=== PATIENT | male | born 1960 | race Caucasian/White ===

== ENCOUNTER 2017-06-10 19:01 | Emergency (ER) | payer OTHER ==
[2017-06-10] MEDS ORDERED: NS 1,000 ML IV ONE ×2 (19:29→19:58)
[2017-06-10] MEDS ORDERED: ONDANSETRON 4 MG/2 ML VIAL IVP ONE (19:29)
[2017-06-10] MEDS ORDERED: KETOROLAC 30 MG/1 ML SDV IVP ONE (19:29)
--- NOTE | 2017-06-10 19:40 | EDPHY ---
H & P Stated Complaint: R Flank pain. 5 x ER admits for Kidney Stones. Time Seen by Provider: 06/10/17 19:11 HPI/ROS: CHIEF COMPLAINT: Right flank pain History by patient HISTORY OF PRESENT ILLNESS: 49 year man presents complaining of pain in his right flank area. Patient was diagnosed with a kidney stone approximately [address] scan. He states that he had a 3x4 mm stone in his distal ureter diagnosed at [facility] Emergency Department. Patient was discharged with tramadol for pain and a single dose of Flomax. Subsequently the patient has had recurrent pain requiring four additional emergency department visits. He has been doing well for the last 2 days until this afternoon while here visiting his brother he developed severe pain again. He took a Zofran and tramadol with no relief prompting him to seek medical attention again. He has not taken any NSAIDs for his pain throughout this course. He states that initially there was some concern about his kidney function but this was checked in the emergency department on several visits and was normal. He does say his sugars have been running high because he was told to stop taking his metformin after the CT scan. He denies any fever chills. He has had some nausea but no vomiting. He has had kidney stones on the left in the past that have all passed without complication. REVIEW OF SYSTEMS: As in HPI, and all other systems reviewed and are negative Source: Patient - Personal History Current Tetanus/Diphtheria Vaccine: Unsure Current Tetanus Diphtheria and Acellular Pertussis (TDAP): Unsure - Medical/Surgical History Hx Asthma: No Hx Chronic Respiratory Disease: No Hx Diabetes: No Hx Cardiac Disease: No Hx Renal Disease: No Hx Cirrhosis: No Hx Alcoholism: No Hx HIV/AIDS: No Hx Splenectomy or Spleen Trauma: No Other PMH: HTN, IDDM, Currently Kidney stones, R inguinal Hernia repair. - Social History Smoking Status: Never smoked - Physical Exam Exam: General Appearance: Alert, obese, nontoxic-appearing. Head: normocephalic, atraumatic Eyes: Pupils equal and round, reactive to light, no pallor or injection. Mouth: Mucous membranes moist. Respiratory: Normal, effort, lungs are clear to auscultation. No wheezes, rales or rhonchi. Cardiovascular: Regular rate and rhythm. S1, S2, no murmurs, gallops or rubs appreciated Gastrointestinal: Abdomen is soft and nontender, no masses, bowel sounds normal. Back: Mild right CVA tenderness, no bony tenderness Neurological: Awake, alert and oriented x 3, no pronator drift, normal gait, no pronator drift Skin: Warm and dry, no rashes. Musculoskeletal: No deformities or tenderness. Extremities: full range of motion, no edema, DP2+ bilat Psychiatric: Patient has normal affect, there is no agitation. Constitutional: Initial Vital Signs Temperature (C) 36.8 C 06/10/17 19:17 Heart Rate 90 06/10/17 19:17 Respiratory Rate 18 06/10/17 19:17 Blood Pressure 172/122 H 06/10/17 19:17 O2 Sat (%) 95 06/10/17 19:17 O2 Delivery Mode Room Air Allergies/Adverse Reactions: No Known Allergies Allergy (Unverified 06/10/17 19:20) Home Medications: Medication Instructions Recorded Basaglar Kwikpen U-100 06/10/17 Benicar 06/10/17 Hydrocodone/APAP 5/325 [Trimble 1 - 2 tab PO Q4H PRN #10 tab 06/10/17 5/325 (*)] Losartan Potassium 06/10/17 Metformin HCl 06/10/17 Simvastatin 06/10/17 Tamsulosin HCl [Flomax 0.4 MG (*)] 0.4 mg PO DAILY #10 cap 06/10/17 Medical Decision Making ED Course/Re-evaluation: 49-year-old man with known right ureteral stone presents with recurrence of severe right flank pain. Patient was given a L of IV fluid and 15 of ketorolac and 4 Zofran after which she was feeling much better and his pain had resolved. Labs remarkable for an elevated creatinine of 1.6 and an elevated blood sugar. Patient was given a 2nd L of fluid. Urinalysis showed no evidence of infection. Because of the elevated creatinine at did not want to put the patient on outpatient NSAIDs despite the fact that he has had good pain relief from Toradol. We will also have him hold his metformin until he is cleared by his PCP because of the elevated creatinine. I discussed this with the patient and his sister in law. Patient was given a dose of Flomax. I will discharge him home with Vicodin and Flomax. He has an appointment pending with a urologist in 5 days. We discussed return precautions. - Data Points Laboratory Results: Laboratory Results 12/24/17 19:25 06/10/17 06/10/17 20:23 19:25 Sodium 135 mEq/L mEq/L (134-144) Potassium 4.2 mEq/L mEq/L (3.5-5.2) Chloride 92 mEq/L L mEq/L (97-110) Carbon Dioxide 23 mEq/l mEq/l (22-31) Anion Gap 20 mEq/L H mEq/L (8-16) BUN 22 mg/dL mg/dL (7-23) Creatinine 1.6 mg/dL H mg/dL (0.7-1.3) Estimated GFR 45 Glucose 219 mg/dL H mg/dL (70-100) Calcium 9.7 mg/dL mg/dL (8.5-10.4) Urine Color YELLOW Urine Appearance HAZY Urine pH 6.0 (5.0-7.5) Ur Specific [place] 1.020 (1.002-1.030) Urine Protein NEGATIVE (NEGATIVE) Urine Ketones NEGATIVE (NEGATIVE) Urine Blood 1+ H (NEGATIVE) Urine Nitrate NEGATIVE (NEGATIVE) Urine Bilirubin NEGATIVE (NEGATIVE) Urine Urobilinogen 0.2 EU EU (0.2-1.0) Ur Leukocyte Esterase NEGATIVE (NEGATIVE) Urine RBC 3-5 /hpf H /hpf (0-3) Urine WBC NONE SEEN /hpf /hpf (0-3) Ur Epithelial Cells TRACE /lpf /lpf (NONE-1+) Urine Bacteria TRACE /hpf H /hpf (NONE SEEN) Hyaline Casts OCCASIONAL /lpf /lpf (0-1) Urine Mucus TRACE /lpf /lpf (NONE-1+) Urine Glucose TRACE H (NEGATIVE) Medications Given: Discontinued Medications Hydrocodone Bitart/Acetaminophen (Trimble 5/325mg Prepack#6) 1 btl TAKEHOME EDNOW ONE Stop: 06/10/17 20:36 Last Admin: 06/10/17 20:47 Dose: 1 btl Sodium Chloride (Ns) 1,000 mls @ 0 mls/hr IV ONCE ONE; Wide Open PRN Reason: Protocol Stop: 06/10/17 19:30 Last Admin: 06/10/17 19:35 Dose: 1,000 mls Sodium Chloride (Ns) 1,000 mls @ 0 mls/hr IV ONCE ONE; Wide Open PRN Reason: Protocol Stop: 06/10/17 19:59 Last Admin: 06/10/17 20:21 Dose: 1,000 mls Ketorolac Tromethamine (Toradol) 15 mg IVP EDNOW ONE Stop: 06/10/17 19:30 Last Admin: 06/10/17 19:35 Dose: 15 mg Ondansetron HCl (Zofran) 4 mg IVP EDNOW ONE Stop: 06/10/17 19:30 Last Admin: 06/10/17 19:35 Dose: 4 mg Tamsulosin HCl (Flomax) 0.4 mg PO EDNOW ONE Stop: 06/10/17 20:34 Last Admin: 06/10/17 20:47 Dose: 0.4 mg Tamsulosin HCl (Flomax) 0.4 mg PO EDNOW ONE Stop: 06/10/17 20:39 Last Admin: 06/10/17 20:47 Dose: 0.4 mg Departure - Departure Disposition: Home, Routine, Self-Care Clinical Impression: Renal colic on right side, Elevated serum creatinine Condition: Good Instructions: Kidney Stones (ED) Additional Instructions: You were seen by Dr. Macrina Gonzales today. Take Vicodin as needed for pain. Take Flomax as prescribed. Keep your appointment with the urologist next week. Return immediately for any fever or uncontrolled pain. Resume taking your metformin after you are cleared by your regular doctor on Sunday. Your creatinine, a measure of kidney function, was elevated today. Please have your doctor recheck your kidney function in 1-2 weeks once the stone has resolved. Return for any worsening or new concerns. Referrals: UNK,UNK [Other] - As per Instructions Prescriptions: Hydrocodone/APAP 5/325 [Trimble 5/325 (*)] 1 - 2 tab PO Q4H PRN #10 tab PRN Reason: Pain, Moderate Tamsulosin HCl [Flomax 0.4 MG (*)] 0.4 mg PO DAILY #10 cap
[2017-06-10 19:51] VITALS: TEMP 98.2; O2SAT 95
[2017-06-10] MEDS ORDERED: TAMSULOSIN HCL 0.4 MG CAP PO ONE ×2 (20:33→20:38)
[2017-06-10] MEDS ORDERED: HYDROCOD/APAP 5/325 PREPACK#6 BTL TAKEHOME ONE (20:35)
[2017-06-10 21:34] VITALS: BP 170/116; PULSE 75; RESP 16
== END 2017-06-10 21:32 | disposition home or self-care (01) ==
LOC: CED 19:01
DX: N23 Unspecified renal colic (principal); R94.4 Abnormal results of kidney function studies; I10 Essential (primary) hypertension; E11.9 Type 2 diabetes mellitus without complications; E86.9 Volume depletion, unspecified; Z79.84 Long term (current) use of oral hypoglycemic drugs
CPT/HCPCS: 80048-PO; 81003-PO; 81015-PO; 96374; J1885; J2405